=== PATIENT | male | born 1980 ===

== ENCOUNTER 2024-12-26 05:35 | Emergency (ER) | payer BC ==
[2024-12-26 05:56] LABS: BASOPHILS ABSOLUTE AUTO 0.02 K/uL (0.00-0.20); BASOPHILS PERCENT AUTO 0.3 % (0.0-2.0); EOSINOPHILS ABSOLUTE AUTO 0.17 K/uL (0.00-0.50); EOSINOPHILS PERCENT AUTO 2.8 % (0.0-5.0); IMMATURE GRAN ABSOLUTE AUTO 0.01 10^3/uL (0.00-0.04); IMMATURE GRAN PERCENT AUTO 0.2 % (0.0-0.4); LYMPHOCYTES ABSOLUTE AUTO 1.40 K/uL (0.50-3.50); LYMPHOCYTES PERCENT AUTO 23.1 % (10.0-50.0); MONOCYTES ABSOLUTE AUTO 0.53 K/uL (0.00-1.00); MONOCYTES PERCENT AUTO 8.7 % (2.0-14.0); NEUTROPHILS ABSOLUTE AUTO 3.93 K/uL (1.40-7.00); NEUTROPHILS PERCENT AUTO 64.9 % (45.0-80.0); PLATELET COUNT,PLT 206 K/uL (150-350); RED BLOOD CELL COUNT 5.46 M/uL (4.33-5.41); RED CELL DISTRIBUTION WIDTH 12.6 % (11.2-14.1); WHITE BLOOD CELL COUNT,WBC 6.1 K/uL (4.0-10.2)
[2024-12-26 06:32] LABS: ALANINE AMINOTRANSFERASE,ALT 40 U/L (12-78); ASPARTATE AMNIOTRANSFERASE,AST 17 U/L (15-37); BILIRUBIN TOTAL 0.5 mg/dL (0.2-1.0); BLOOD UREA NITROGEN,BUN 18 mg/dL (7-18); CARBON DIOXIDE,CO2 27.4 mmol/L (21.0-32.0); CHLORIDE,CL 108 mmol/L (98-107); CREATININE 1.14 mg/dL (0.51-1.17); ETHANOL BLOOD MEDICAL 0.001 g/dL (0.000-0.080); GLUCOSE RANDOM 111 mg/dL (70-99); POTASSIUM,K 4.1 mmol/L (3.5-5.1); PROTEIN TOTAL,TP 7.4 g/dL (6.4-8.2); SODIUM,NA 144 mmol/L (136-145); TSH ULTRASENSITIVE 2.345 mIU/mL (0.358-3.740)
[2024-12-26 06:41] LABS: INR 1.1 (0.9-1.1); PTT,PARTIAL THROMBOPLSTIN TIME 24.9 SEC (23.8-34.4)
[2024-12-26] MEDS: Sodium Chloride 0.9% 10 ML Syringe FLUSH PRN (06:52)
[2024-12-26] MEDS: fentaNYL 50 MCG/ML SDV IVPUSH ONE (06:56)
[2024-12-26] MEDS: Ondansetron 4 MG/2 ML SDV IVPUSH ONE (06:56)
[2024-12-26 07:38] LABS: ESTIMATED GFR 80 mL/min (>=60)
== END 2024-12-26 07:25 ==
LOC: LL.ED 05:35
DX: I63.30 Cerebral infarction due to thrombosis of unspecified cerebral artery (principal); Z88.8 Allergy status to other drugs, medicaments and biological substances
CPT/HCPCS: 36415; 37195; 70450; 80053; 80307; 83735; 84443; 84484; 85025; 85610; 85730; 86140; 93005; 93010; 96374; 96375; 99284; 99285-25; J2405; J3010; J3101